=== PATIENT | female | born 1995 | race African-American/Black ===

== ENCOUNTER 2019-10-09 22:58 | Emergency (ER) | payer SELFPAY ==
[2016-05-20 11:47] VITALS: BP 105/59
[~2019-10-09 22:58] MED LIST: ALBU2.5V8 INH; HYDR5SUS PO; PRED15SO3 PO; PRED20TA PO
== END 2019-10-10 00:25 | disposition left against medical advice (07) ==
LOC: ER 22:58
DX: M79.642 Pain in left hand (principal); Z53.21 Procedure and treatment not carried out due to patient leaving prior to being seen by health care provider